=== PATIENT | male | born 1955 | race African-American/Black ===

== ENCOUNTER → 2017-01-20 | Outpatient (CLI) | payer OTHER ==
--- NOTE | 2017-01-20 20:45 | RADIOLOGY REPORT (SQ) ---
EXAM DESCRIPTION: CT PELVIS WITH COMPLETED DATE/TIME: 01/20/2017 8:29 pm REASON FOR STUDY: Unilat inguinal hernia,without obstruct/gangrene IV ORAL K40.90 COMPARISON: None. TECHNIQUE: CT scan of the pelvis performed with intravenous contrast. Images reviewed with soft tis nima and bone windows. Reconstructed coronal and sagittal MPR images reviewed. All images stored on PACS. Contrast administered was 85 mL Isovue 370. Renal function creatinine 0.9. All CT scanners at this facility use dose modulation, iterative reconstruction, and/or weight based d osing when appropriate to reduce radiation dose to as low as reasonably achievable (ALARA). [facility]: Dose Right [facility]: CareDose [facility]: Dose Right [facility]: Teradose 4D [facility]: [employer] RADIATION DOSE: 27.28 mGy. LIMITATIONS: None. FINDINGS: PELVIC BONES: No acute fracture. No worrisome bone lesions. VISUALIZED SPINE: No acute findings. HIP(S): No acute fracture or dislocation. No worrisome bone lesions. PELVIC SOFT TISSUES: No evidence of inguinal hernia or fluid collection. EXTRAPELVIC SOFT TISSUES: No significant findings. OTHER: Polycystic kidneys. IMPRESSION: NO ACUTE FINDINGS.No evidence of inguinal hernia or fluid collection.Polycystic kidneys. TECHNICAL DOCUMENTATION: JOB ID: [id number] Quality ID # [id number]: Final reports with documentation of one or more dose reduction techniques (e.g., Au tomated exposure control, adjustment of the mA and/or kV according to patient size, use of iterative reconstruction technique) 2010 [employer]- All Rights Reserved
== END ==
LOC: RAD 16:51
PROVIDERS: ATTEND Internal Medicine Geriatric Medicine
DX: K40.90 Unilateral inguinal hernia, without obstruction or gangrene, not specified as recurrent (principal)
CPT/HCPCS: 72193; 82565

== ENCOUNTER 2017-01-31 21:59 | Emergency (ER) | payer OTHER ==
--- NOTE | 2017-01-31 23:32 | RADIOLOGY REPORT (SQ) ---
EXAM DESCRIPTION: KNEE RIGHT 4 VIEWS COMPLETED DATE/TIME: 01/31/2017 11:22 pm REASON FOR STUDY: PAIN COMPARISON: None. NUMBER OF VIEWS: Four views. TECHNIQUE: AP, lateral, and both oblique radiographic images acquired of the right knee. LIMITATIONS: None. FINDINGS: MINERALIZATION: Normal. BONES: No acute fracture or dislocation. No worrisome bone lesions. No significant osteophytes. JOINT: No effusion. No chondrocalcinosis. OTHER: No other significant finding. IMPRESSION: No significant findings TECHNICAL DOCUMENTATION: JOB ID: [id number] [employer]- All Rights Reserved
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
[2017-02-01 01:42] VITALS: BP 153/69
== END 2017-02-01 01:35 | disposition home or self-care (01) ==
LOC: ER 21:59
DX: S01.01XA Laceration without foreign body of scalp, initial encounter (principal); S86.911A Strain of unspecified muscle(s) and tendon(s) at lower leg level, right leg, initial encounter; S16.1XXA Strain of muscle, fascia and tendon at neck level, initial encounter; V49.40XA Driver injured in collision with unspecified motor vehicles in traffic accident, initial encounter; R51 Headache; M54.2 Cervicalgia; M25.561 Pain in right knee; I10 Essential (primary) hypertension; Z79.82 Long term (current) use of aspirin; Z79.899 Other long term (current) drug therapy
CPT/HCPCS: 99284; 73564; 70450; 72125; L0120

== ENCOUNTER 2017-02-08 16:19 | Emergency (ER) | payer OTHER ==
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
[2017-02-08 20:02] VITALS: BP 174/78
== END 2017-02-08 19:54 | disposition home or self-care (01) ==
LOC: ER 16:19
DX: M54.5 Low back pain (principal); M25.561 Pain in right knee; V89.2XXA Person injured in unspecified motor-vehicle accident, traffic, initial encounter; E78.00 Pure hypercholesterolemia, unspecified; I10 Essential (primary) hypertension
CPT/HCPCS: 72070; 72110; 99283

== ENCOUNTER 2017-02-11 05:24 | Day surgery (SDC) | payer OTHER ==
--- NOTE | 2017-02-04 10:27 | RADIOLOGY REPORT (SQ) ---
EXAM DESCRIPTION: CHEST PA/LATERAL COMPLETED DATE/TIME: 02/04/2017 9:57 am REASON FOR STUDY: PRE-OP COMPARISON: March 2016 EXAM PARAMETERS: NUMBER OF VIEWS: two views TECHNIQUE: Digital Frontal and Lateral radiographic views of the chest acquired. RADIATION DOSE: NA LIMITATIONS: none FINDINGS: LUNGS AND PLEURA: No opacities, masses or pneumothorax. No pleural effusion. MEDIASTINUM AND HILAR STRUCTURES: No masses or contour abnormalities. HEART AND VASCULAR STRUCTURES: Heart normal size. No evidence for failure. BONES: No acute findings. HARDWARE: None in the chest. OTHER: No other significant finding. IMPRESSION: NO SIGNIFICANT RADIOGRAPHIC FINDING IN THE CHEST. TECHNICAL DOCUMENTATION: JOB ID: [id number] [employer]- All Rights Reserved
--- NOTE | 2017-02-04 11:01 | EKG REPORT ---
SEVERITY:- ABNORMAL ECG - SINUS ARRHYTHMIA, RATE 48-74 LEFT VENTRICULAR HYPERTROPHY : Confirmed by: Sonya Curiel MD 04-Feb-2017 11:00:36
[2017-02-04 11:07] LABS: ABSOLUTE EOSINOPHILS # (AUTO) 0.2 10^3/uL (0.0-0.6); ABSOLUTE LYMPHOCYTES (AUTO) 1.2 10^3/uL (0.5-4.7); ABSOLUTE MONOCYTES (AUTO) 0.6 10^3/uL (0.1-1.4); ABSOLUTE NEUT (AUTO) 2.6 10^3/uL (1.7-8.2); HEMATOCRIT 40.8 % (37.9-51.0); HEMOGLOBIN 13.2 g/dL (13.5-17.0); HGB HCT DIFFERENCE -1.2; LYMPHOCYTES % (AUTO) 25.8 % (13-45); MEAN CORPUSCULAR HGB CONC 32.3 g/dL (32.0-36.0); MEAN CORPUSCULAR VOLUME 84 fl (80-97); MONOCYTES % (AUTO) 12.5 % (3-13); RED BLOOD COUNT 4.89 10^6/uL (4.35-5.55); RED CELL DISTRIBUTION WIDTH 14.2 % (11.5-14.0); SEGMENTED NEUTROPHILS % (AUTO) 55.7 % (42-78); WHITE BLOOD COUNT 4.6 10^3/uL (4.0-10.5)
[2017-02-04 11:12] LABS: APPEARANCE,URINE CLEAR; BILIRUBIN,URINE NEGATIVE (NEGATIVE); GLUCOSE, URINE NEGATIVE (NEGATIVE); KETONES,URINE NEGATIVE (NEGATIVE); LEUKOCYTE ESTERASE,URINE NEGATIVE (NEGATIVE); NITRITE,URINE NEGATIVE (NEGATIVE); PROTEIN,URINE 30 mg/dL (NEGATIVE); URINE SPECIFIC GRAVITY 1.025; UROBILINOGEN,URINE NEGATIVE mg/dL (<2.0)
[2017-02-04 11:13] LABS: RBC,URINE 0-1 /HPF
[2017-02-04 11:26] LABS: ANION GAP 10 (5-19); BLOOD UREA NITROGEN 28 mg/dL (7-20); CALCIUM 9.2 mg/dL (8.4-10.2); CARBON DIOXIDE 29 mmol/L (22-30); CHLORIDE 105 mmol/L (98-107); CREATININE RESULT 0.88 mg/dL (0.52-1.25); GLUCOSE 87 mg/dL (75-110); POTASSIUM 4.1 mmol/L (3.6-5.0); SODIUM 143.8 mmol/L (137-145)
[~2017-02-11 05:24] MED LIST: CEFAZOLIN 2 GM/D5W RTU 2 GM/50 ML RTUPB IV PRN; LACTATED RINGERS 1000 ML IV PRN; LIDOCAINE 0.5% INJ-PF (5 MG/ML) 50 ML SDV SUBCUT PRN
[2017-02-11] MEDS ORDERED: POLYMYXIN B SULFATE INJ 500000 UNIT VIAL ONE (06:02)
[2017-02-11] MEDS ORDERED: BACITRACIN INJ 50,000 UNIT VIAL ONE (06:02)
[2017-02-11] MEDS ORDERED: PROPOFOL INJ 200 MG/20 ML VIAL IV ONE (07:08)
[2017-02-11] MEDS ORDERED: BUPIVACAINE HCL 0.25% /EPINEPHRINE INJ/PF 30 ML SDV ONE (07:08)
[2017-02-11] MEDS ORDERED: MIDAZOLAM 2 MG/2 ML INJ ONE (07:08)
[2017-02-11] MEDS ORDERED: HYDROMORPHONE HCL INJ/PF 2 MG/ML AMPULE ONE (07:08)
[2017-02-11] MEDS ORDERED: DIPHENHYDRAMINE HCL 50 MG/ML VIAL IV PRN (07:45)
[2017-02-11] MEDS ORDERED: PROMETHAZINE HCL INJ 25 MG/1 ML VIAL IV PRN ×2 (07:45)
[2017-02-11] MEDS ORDERED: MEPERIDINE HCL/PF INJ 25 MG/1 ML DISP.SYRIN IV PRN (07:45)
[2017-02-11] MEDS ORDERED: FENTANYL CITRATE INJ/PF 100 MCG/2 ML AMPUL IV PRN ×3 (07:45)
[2017-02-11] MEDS ORDERED: MORPHINE SULFATE 10 MG/ML INJ IV PRN (07:45)
[2017-02-11] MEDS ORDERED: OXYCODONE-ACETAMINOPHEN 5-325 MG TABLET PO PRN ×3 (07:45→08:25)
--- NOTE | 2017-02-11 08:13 | PDOC DISCHARGE SUMMARY ---
Discharge Summary (SDC) - Discharge Final Diagnosis: Excision left shoulder lipoma Date of Surgery: 02/11/17 Discharge Date: 02/11/17 Condition: Good Treatment or Instructions: Range of motion as tolerated. No heavy lifting or carrying. Keep dressing dry clean and intact for 4 days. Okay to remove the dressing in 4 days and then shower. Follow-up in 10-14 days. Patient to return sooner if he develops fevers chills , redness or drainage. Prescriptions: Tramadol HCl [Ultram 50 mg Tablet] 50 mg PO ASDIR PRN #20 tablet PRN Reason: Referrals: KALIE VALVERDE MD [ACTIVE STAFF] - Discharge Diet: As Tolerated Respiratory Treatments at Home: Deep Breathing/Coughing Discharge Activity: No Lifting/Push/Pulling, Slowly Increase Activity Home Care Assistance: None Needed Report the Following to Your Physician Immediately: Shortness of Breath, Vomiting, Increase in Pain, Yellow Skin, Fever over 101 Degrees, Unusual Bleeding, Redness, Swelling, Warmth, Increased Soreness, Drainage-Yellow, Drainage-Castro, Drainage-Green, Drainage-Foul Smelling
--- NOTE | 2017-02-11 08:18 | Operative Report ---
Operative Report DATE OF SURGERY: 02/11/17 PREOPERATIVE DIAGNOSIS: Lipoma left shoulder. POSTOPERATIVE DIAGNOSIS: Same OPERATION: Excision of lipoma left shoulder. SURGEON: KALIE ARIAS ANESTHESIA: GA TISSUE REMOVED OR ALTERED: Lipoma measuring 6 x 4 x 2.5mm COMPLICATIONS: None ESTIMATED BLOOD LOSS: 10mL INTRAOPERATIVE FINDINGS: As above PROCEDURE: Patient was given 2 g of Ancef and then taken to the operating room. Patient was placed in supine position withPatient was given general anesthetic. Patient was placed about a 30 head above bed and a bump under his shoulder blade. The prepped and draped the left superior shoulder in normal sterile surgical manner. A thyroid drape was used to place over the lipoma located superior to the left shoulder. Timeout was done identifying the left shoulder as the correct site. Quarter percent Marcaine with epinephrine was injected in the anticipated surgical site. 15 blade was used to do a longitudinal incision right over the mass. Electrocautery was used to coagulate any active bleeders. Self-retaining was applied and then dissection was done with Metzenbaum scissors and pickups. Was able to separate the dermal fascial layer and exposed the mass further. Small rogelio in the fascia to tissue over the mass was done and then Metzenbaum scissors was used to cut from anterior to posterior exposing the fatty tumor. Metzenbaum scissors was used then to dissect around the tumor and inferiorly and with chest finger dissection was able to remove the lipoma off of the superior shoulder. Patient had a small little remnant in the most posterior aspect of her incision which was clamped with a Allis clamp and then resected with Metzenbaum scissors. Did not palpate any further fatty tumor and did not visualize any other pathology. The AC joint was not violated. The shoulder joint was not violated. I have proceeded to then approximate the subcutaneous tissue with 0 Vicryl and applied 2-0 Vicryl to the dermal layer. I closed skin with 3-0 Monocryl stitch in a subcuticular fashion. Benzoin and Steri-Strips were applied. Incision wound and dressing was covered with 4 x 4 dressing and tape. Drapes were removed and patient LMA was removed and patient was placed flat position and then transferred to [facility] where he was taken to PACU in a stable condition.
[2017-02-11 10:04] VITALS: BP 140/77
== END 2017-02-11 10:20 | disposition home or self-care (01) ==
LOC: OROUT 05:24
PROVIDERS: ATTEND Orthopaedic Surgery
PROC: 0JBF0ZZ Excision of Left Upper Arm Subcutaneous Tissue and Fascia, Open Approach (ICD-10-PCS; principal; 2017-02-11 07:30)
DX: D17.22 Benign lipomatous neoplasm of skin and subcutaneous tissue of left arm (principal); I10 Essential (primary) hypertension; Z79.899 Other long term (current) drug therapy; Z79.82 Long term (current) use of aspirin
CPT/HCPCS: 93005; 36415; 85025; 80048; 81001; 88304 ×2; 71020; 93010; 11406; J2250; J3490; J1170; J2704; J0690; 400

== ENCOUNTER 2017-03-20 11:32 | Observation (INO) | payer OTHER ==
[2017-03-20] MEDS ORDERED: NORMAL SALINE 1000 ML 1,000 ML IV PRN (12:34)
--- NOTE | 2017-03-20 12:37 | ER Document Report ---
ED Medical Screen (RME) - General Chief Complaint: High Blood Pressure Stated Complaint: BLOOD PRESSURE PROBLEM Time Seen by Provider: 03/20/17 12:34 Mode of Arrival: Ambulatory Information source: Patient Notes: This is a 61-year-old man presents to the emergency room for concerns for elevated blood pressure. The patient does report some lightheadedness and dizziness. Denies any headache or weakness TRAVEL OUTSIDE OF THE [place] IN LAST 30 DAYS: No - Related Data Allergies/Adverse Reactions: No Known Allergies Allergy (Verified 02/08/17 16:28) Past Medical History - Social History Chew tobacco use (# tins/day): No Frequency of alcohol use: None Drug Abuse: None - Past Medical History Cardiac Medical History: Reports: Hx Hypercholesterolemia, Hx Hypertension Denies: Hx Coronary Artery Disease, Hx Heart Attack Pulmonary Medical History: Denies: Hx Asthma, Hx Bronchitis, Hx COPD, Hx Pneumonia, Hx Tuberculosis Neurological Medical History: Denies: Hx Cerebrovascular Accident, Hx Seizures Renal/ Medical History: Denies: Hx Peritoneal Dialysis Musculoskeltal Medical History: Reports Hx Arthritis - Immunizations Hx Diphtheria, Pertussis, Tetanus Vaccination: Yes Physical Exam - Vital signs Vitals: Temp Pulse Resp BP Pulse Ox 97.3 F 45 L 17 177/69 H 100 03/20/17 11:49 03/20/17 11:49 03/20/17 11:49 03/20/17 11:49 03/20/17 11:49 Course - Vital Signs Vital signs: Temp Pulse Resp BP Pulse Ox 97.3 F 45 L 14 183/79 H 98 03/20/17 11:49 03/20/17 11:49 03/20/17 13:43 03/20/17 13:31 03/20/17 13:31 - Laboratory Result Diagrams: 03/20/17 13:40 03/20/17 13:40 Laboratory results interpreted by me: 03/20/17 03/20/17 13:40 13:40 WBC 3.8 L RDW 14.2 H Seg Neutrophils % 37.4 L Eosinophils % 6.1 H Absolute Neutrophils 1.4 L Creatine Kinase 393 H Doctor's Discharge - Discharge Clinical Impression: uncontrolled blood pressure, chest pain Condition: Stable Disposition: ADMITTED OBSERVATION
--- NOTE | 2017-03-20 13:23 | RADIOLOGY REPORT (SQ) ---
EXAM DESCRIPTION: CHEST SINGLE VIEW COMPLETED DATE/TIME: 03/20/2017 1:07 pm REASON FOR STUDY: cp COMPARISON: 02/04/2017 EXAM PARAMETERS: NUMBER OF VIEWS: One view. TECHNIQUE: Single frontal radiographic view of the chest acquired. RADIATION DOSE: NA LIMITATIONS: None. FINDINGS: LUNGS AND PLEURA: No opacities, masses or pneumothorax. No pleural effusion. MEDIASTINUM AND HILAR STRUCTURES: No masses. Contour normal. HEART AND VASCULAR STRUCTURES: Heart stable in size. Normal vasculature. BONES: No acute findings. HARDWARE: None in the chest. OTHER: No other significant finding. IMPRESSION: NO ACUTE RADIOGRAPHIC FINDING IN THE CHEST. NO SIGNIFICANT CHANGE FROM PRIOR STUDY. TECHNICAL DOCUMENTATION: JOB ID: [id number]
--- NOTE | 2017-03-20 13:40 | EKG REPORT ---
SEVERITY:- OTHERWISE NORMAL ECG - SINUS BRADYCARDIA : Confirmed by: Sonya Curiel MD 20-Mar-2017 13:39:30
[2017-03-20 14:05] LABS: ABSOLUTE EOSINOPHILS # (AUTO) 0.2 10^3/uL (0.0-0.6); ABSOLUTE LYMPHOCYTES (AUTO) 1.7 10^3/uL (0.5-4.7); ABSOLUTE MONOCYTES (AUTO) 0.4 10^3/uL (0.1-1.4); ABSOLUTE NEUT (AUTO) 1.4 10^3/uL (1.7-8.2); EOSINOPHILS % (AUTO) 6.1 % (0-6); HEMATOCRIT 42.5 % (37.9-51.0); HEMOGLOBIN 13.9 g/dL (13.5-17.0); HGB HCT DIFFERENCE -0.8; MEAN CORPUSCULAR HEMOGLOBIN 27.4 pg (27.0-33.4); MEAN CORPUSCULAR HGB CONC 32.7 g/dL (32.0-36.0); MEAN CORPUSCULAR VOLUME 84 fl (80-97); MONOCYTES % (AUTO) 11.5 % (3-13); RED BLOOD COUNT 5.08 10^6/uL (4.35-5.55); RED CELL DISTRIBUTION WIDTH 14.2 % (11.5-14.0); SEGMENTED NEUTROPHILS % (AUTO) 37.4 % (42-78); WHITE BLOOD COUNT 3.8 10^3/uL (4.0-10.5)
[2017-03-20 14:10] LABS: ALANINE AMINOTRANSFERASE 34 U/L (21-72); ALBUMIN 4.4 g/dL (3.5-5.0); ALKALINE PHOSPHATASE 67 U/L (38-126); ANION GAP 12 (5-19); ASPARTATE AMINO TRANSFERASE 29 U/L (17-59); BILIRUBIN,DIRECT 0.3 mg/dL (0.0-0.4); BILIRUBIN,TOTAL 0.9 mg/dL (0.2-1.3); BLOOD UREA NITROGEN 17 mg/dL (7-20); CALCIUM 9.1 mg/dL (8.4-10.2); CARBON DIOXIDE 29 mmol/L (22-30); CHLORIDE 103 mmol/L (98-107); CREATINE KINASE 393 U/L (55-170); CREATININE RESULT 0.91 mg/dL (0.52-1.25); GLUCOSE 91 mg/dL (75-110); POTASSIUM 3.9 mmol/L (3.6-5.0); TOTAL PROTEIN 7.8 g/dL (6.3-8.2)
[2017-03-20 14:21] LABS: CREATINE KINASE MB 3.66 ng/mL (<4.55); TROPONIN I 0.014 ng/mL
--- NOTE | 2017-03-20 14:42 | ER Document Report ---
ED General - General Chief Complaint: High Blood Pressure Stated Complaint: BLOOD PRESSURE PROBLEM Time Seen by Provider: 03/20/17 12:34 Mode of Arrival: Ambulatory Information source: Patient Notes: 61-year-old man that presented to the emergency room with dizziness, weakness and "just not feeling right". The patient does state he had an episode of chest discomfort this morning at did not last that long. The patient states she has a history of high blood pressure which is been borderline and he also has a history of bradycardia. TRAVEL OUTSIDE OF THE [place] IN LAST 30 DAYS: No - HPI Onset: This morning Onset/Duration: Gradual Quality of pain: Dull Severity: Moderate Pain Level: 2 Associated symptoms: Chest pain, Nausea. denies: Fever, Shortness of breath Exacerbated by: Denies Relieved by: Denies Similar symptoms previously: No Recently seen / treated by doctor: No - Related Data Allergies/Adverse Reactions: No Known Allergies Allergy (Verified 02/08/17 16:28) Home Medications: Current Home Medications Aspirin [Ecotrin 81 mg EC Tablet] 81 mg PO DAILY 03/20/17 [History] Valsartan [Diovan 160 mg Tablet] 160 mg PO DAILY 03/20/17 [History] Past Medical History - General Information source: Patient - Social History Smoking Status: Never Smoker Chew tobacco use (# tins/day): No Frequency of alcohol use: None Drug Abuse: None Lives with: Family Family History: Reviewed & Not Pertinent Patient has suicidal ideation: No Patient has homicidal ideation: No - Past Medical History Cardiac Medical History: Reports: Hx Hypercholesterolemia, Hx Hypertension Denies: Hx Coronary Artery Disease, Hx Heart Attack Pulmonary Medical History: Denies: Hx Asthma, Hx Bronchitis, Hx COPD, Hx Pneumonia, Hx Tuberculosis Neurological Medical History: Denies: Hx Cerebrovascular Accident, Hx Seizures Renal/ Medical History: Denies: Hx Peritoneal Dialysis Musculoskeltal Medical History: Reports Hx Arthritis - Immunizations Hx Diphtheria, Pertussis, Tetanus Vaccination: Yes Review of Systems - Review of Systems Constitutional: No symptoms reported EENT: No symptoms reported Cardiovascular: See HPI Respiratory: No symptoms reported Gastrointestinal: No symptoms reported Genitourinary: No symptoms reported Male Genitourinary: No symptoms reported Musculoskeletal: No symptoms reported Skin: No symptoms reported Hematologic/Lymphatic: No symptoms reported Neurological/Psychological: No symptoms reported Physical Exam - Vital signs Vitals: Temp Pulse Resp BP Pulse Ox 97.3 F 45 L 17 177/69 H 100 03/20/17 11:49 03/20/17 11:49 03/20/17 11:49 03/20/17 11:49 03/20/17 11:49 Notes: Physical exam: GENERAL:-year-old man, alert and oriented 3, no acute distress HEAD: Atraumatic, normocephalic. EYES: Pupils equal round and reactive to light, extraocular movements intact, sclera anicteric, conjunctiva are normal. ENT: TMs normal, nares patent, oropharynx clear without exudates. Moist mucous membranes. NECK: Normal range of motion, supple without lymphadenopathy or JVD. LUNGS: Breath sounds clear to auscultation bilaterally and equal. No wheezes rales or rhonchi. HEART: Regular rate and rhythm without murmurs, rubs or gallops. ABDOMEN: Soft, normoactive bowel sounds. No tenderness to palpation. No guarding, no rebound. No masses appreciated. EXTREMITIES: Normal range of motion, no pitting or edema. No clubbing or cyanosis. NEUROLOGICAL: Cranial nerves II through XII grossly intact. Normal speech, normal gait. PSYCH: Normal mood, normal affect. SKIN: Warm, Dry, normal turgor, no rashes or lesions noted. Course - Vital Signs Vital signs: Temp Pulse Resp BP Pulse Ox 98.0 F 45 L 18 171/74 H 10 L 03/20/17 18:03 03/20/17 18:03 03/20/17 18:03 03/20/17 18:03 03/20/17 18:03 - Laboratory Result Diagrams: 03/20/17 13:40 03/20/17 13:40 Laboratory results interpreted by me: 03/20/17 03/20/17 13:40 13:40 WBC 3.8 L RDW 14.2 H Seg Neutrophils % 37.4 L Eosinophils % 6.1 H Absolute Neutrophils 1.4 L Creatine Kinase 393 H - Diagnostic Test Radiology reviewed: Image reviewed, Reports reviewed - CXR: no infiltrates - EKG Interpretation by Me Rate: Bradycardia Rhythm: NSR - ECG shows sinus bradycardia acute ST-T wave changes Discharge - Discharge Clinical Impression: uncontrolled blood pressure, chest pain Condition: Stable Disposition: ADMITTED OBSERVATION Admitting Provider: [facility] Unit Admitted: Telemetry
[2017-03-20] MEDS ORDERED: VALSARTAN 160 MG TABLET PO ONE (17:30)
[2017-03-20 17:37] LABS: MAGNESIUM 1.9 mg/dL (1.6-2.3)
[2017-03-20] MEDS ORDERED: ASPIRIN 81 MG TABLET, ENT COATED PO ONE (18:00)
[2017-03-20 20:24] LABS: CREATINE KINASE MB 3.05 ng/mL (<4.55); TROPONIN I 0.013 ng/mL
[2017-03-20 20:42] LABS: THYROID STIMULATING HORMONE 7.91 uIU/mL (0.47-4.68)
[2017-03-21 02:22] LABS: CREATINE KINASE MB 2.41 ng/mL (<4.55); TROPONIN I 0.015 ng/mL
[2017-03-21 07:51] LABS: ABSOLUTE EOSINOPHILS # (AUTO) 0.3 10^3/uL (0.0-0.6); ABSOLUTE LYMPHOCYTES (AUTO) 1.7 10^3/uL (0.5-4.7); ABSOLUTE MONOCYTES (AUTO) 0.4 10^3/uL (0.1-1.4); ABSOLUTE NEUT (AUTO) 1.7 10^3/uL (1.7-8.2); BASOPHILS % (AUTO) 0.7 % (0-2); EOSINOPHILS % (AUTO) 6.6 % (0-6); HEMATOCRIT 41.9 % (37.9-51.0); HEMOGLOBIN 13.7 g/dL (13.5-17.0); HGB HCT DIFFERENCE -0.8; MEAN CORPUSCULAR HEMOGLOBIN 27.6 pg (27.0-33.4); MEAN CORPUSCULAR HGB CONC 32.7 g/dL (32.0-36.0); MEAN CORPUSCULAR VOLUME 85 fl (80-97); MONOCYTES % (AUTO) 10.3 % (3-13); RED BLOOD COUNT 4.96 10^6/uL (4.35-5.55); RED CELL DISTRIBUTION WIDTH 13.9 % (11.5-14.0); SEGMENTED NEUTROPHILS % (AUTO) 41.4 % (42-78); WHITE BLOOD COUNT 4.1 10^3/uL (4.0-10.5)
[2017-03-21 08:01] LABS: ALANINE AMINOTRANSFERASE 27 U/L (21-72); ALBUMIN 3.7 g/dL (3.5-5.0); ALKALINE PHOSPHATASE 53 U/L (38-126); ANION GAP 10 (5-19); ASPARTATE AMINO TRANSFERASE 21 U/L (17-59); BILIRUBIN,DIRECT 0.2 mg/dL (0.0-0.4); BLOOD UREA NITROGEN 15 mg/dL (7-20); CARBON DIOXIDE 26 mmol/L (22-30); CHLORIDE 105 mmol/L (98-107); CREATINE KINASE 277 U/L (55-170); GLUCOSE 82 mg/dL (75-110); POTASSIUM 3.9 mmol/L (3.6-5.0); SODIUM 140.8 mmol/L (137-145); TOTAL PROTEIN 6.7 g/dL (6.3-8.2)
[2017-03-21 08:19] LABS: CREATINE KINASE MB 1.97 ng/mL (<4.55)
[2017-03-21 08:26] LABS: TROPONIN I < 0.012 ng/mL
[2017-03-21] MEDS: VALSARTAN 160 MG TABLET PO SCH (11:02)
[2017-03-21] MEDS: ASPIRIN 81 MG TABLET, ENT COATED PO SCH (11:12)
[2017-03-21] MEDS: ENOXAPARIN SODIUM INJ 40 MG/0.4 ML DISP.SYRIN SUBCUT SCH (11:12)
[2017-03-21] MEDS ORDERED: 1/2 NORMAL SALINE 1,000 ML IV PRN (18:52)
[2017-03-21] MEDS ORDERED: VALSARTAN 160 MG TABLET PO ONE (19:00)
--- NOTE | 2017-03-21 19:14 | PDOC H&P ---
History of Present Illness Admission Date/PCP: 03/20/17 17:17 GOIVANNA COLLINS Patient complains of: High blood pressure, dizziness, chest discomfort History of Present Illness: GIGI TAPIA is a 61 year old male known to my practice who presented to ED with complaints of chest discomfort, dizziness, and elevated blood pressure. He reported associated nausea but denied any associated headache, vomiting, or diaphoresis. Patient reported episodes of palpitation. Patient reported episode of chest discomfort on the morning of her presentation which he described as short lived and no definite chest pain. He claimed that he had a [facility]. He claimed compliance with his medication and dietary restrictions. His initial ED evaluation was remarkable for bradycardia. His co-morbidities include Hypertension, Hyperlipidemia, and osteoarthritis. He denied cigarette smoking or alcohol abuse. Past Medical History Cardiac Medical History: Reports: Hyperlipidema, Hypertension Denies: Congestive Heart Failure, Coronary Artery Disease, Myocardial Infarction Pulmonary Medical History: Denies: Asthma, Bronchitis, Chronic Obstructive Pulmonary Disease (COPD), Pneumonia, Tuberculosis Neurological Medical History: Denies: Seizures Renal/ Medical History: Denies: End Stage Renal Disease GI Medical History: Denies: Cirrhosis, Gastroesophageal Reflux Disease Musculoskeltal Medical History: Reports: Arthritis Psychiatric Medical History: Denies: Bipolar Disorder, Depression Hematology: Denies: Anemia, Bleeding Tendencies Social History Lives with: Family Smoking Status: Never Smoker Hx Recreational Drug Use: No Hx Prescription Drug Abuse: No - Advance Directive Resuscitation Status: Full Code Family History Family History: Reviewed & Not Pertinent Parental Family History Reviewed: Yes Children Family History Reviewed: Yes Sibling(s) Family History Reviewed.: Yes Medication/Allergy Home Medications: Aspirin [Ecotrin 81 mg EC Tablet] 81 mg PO DAILY 03/20/17 Valsartan [Diovan 160 mg Tablet] 160 mg PO DAILY 03/20/17 Allergies/Adverse Reactions: No Known Allergies Allergy (Verified 02/08/17 16:28) Review of Systems Constitutional: ABSENT: chills, fever(s), headache(s), weight gain, weight loss Eyes: ABSENT: visual disturbances Ears: ABSENT: hearing changes Nose, Mouth, and Throat: ABSENT: as per HPI, headache(s), mouth pain, sore throat, vertigo, other Cardiovascular: PRESENT: other - chest discomfort. ABSENT: as per HPI, chest pain, dyspnea on exertion, edema, orthropnea, palpitations Respiratory: ABSENT: cough, hemoptysis Gastrointestinal: PRESENT: nausea - slight. ABSENT: as per HPI, abdominal pain , bloating, coffee ground emesis, constipation, diarrhea, dysphagia, heartburn, hematemesis, hematochezia, melena, vomiting, other Genitourinary: ABSENT: dysuria, hematuria Musculoskeletal: ABSENT: joint swelling Integumentary: ABSENT: rash, wounds Neurological: ABSENT: abnormal gait, abnormal speech, confusion, dizziness, focal weakness, syncope Psychiatric: ABSENT: anxiety, depression, homidical ideation, suicidal ideation Endocrine: ABSENT: cold intolerance, heat intolerance, menstrual abnormalities, polydipsia, polyuria Hematologic/Lymphatic: ABSENT: easy bleeding, easy bruising, lymphadenopathy Physical Exam Vital Signs: Temp Pulse Resp BP Pulse Ox 98.1 F 59 L 18 177/81 H 100 03/21/17 15:49 03/21/17 15:49 03/21/17 15:49 03/21/17 15:49 03/21/17 15:49 Intake & Output 03/20/17 03/21/17 03/22/17 06:59 06:59 06:59 Intake Total 1216 Balance 1216 Weight 83.2 kg General appearance: PRESENT: no acute distress, well-developed, well-nourished Head exam: PRESENT: atraumatic, normocephalic Eye exam: PRESENT: conjunctiva pink, EOMI, PERRLA. ABSENT: scleral icterus Ear exam: PRESENT: normal external ear exam Mouth exam: PRESENT: moist, tongue midline Teeth exam: ABSENT: dental caries, dental tenderness, edentulous, poor dentation , other Throat exam: ABSENT: post pharyngeal erythema, tonsillar erythema, tonsillar exudate, tonsillogmegaly, other Neck exam: PRESENT: full ROM. ABSENT: carotid bruit, JVD, lymphadenopathy, thyromegaly Respiratory exam: PRESENT: clear to auscultation homero Cardiovascular exam: PRESENT: RRR. ABSENT: diastolic murmur, rubs, systolic murmur Pulses: PRESENT: normal dorsalis pedis pul, +2 pedal pulses bilateral Vascular exam: PRESENT: normal capillary refill GI/Abdominal exam: PRESENT: hernia - left inguinal hernia, normal bowel sounds, soft. ABSENT: distended, guarding, mass, organolmegaly, rebound, tenderness Rectal exam: PRESENT: deferred Extremities exam: ABSENT: pedal edema Musculoskeletal exam: PRESENT: deformity - related to joint involvement with arthritis Neurological exam: PRESENT: alert, awake, oriented to person, oriented to place , oriented to time, oriented to situation, CN II-XII grossly intact. ABSENT: motor sensory deficit Psychiatric exam: PRESENT: appropriate affect, normal mood. ABSENT: homicidal ideation, suicidal ideation Skin exam: PRESENT: dry, intact, warm. ABSENT: cyanosis, rash Results Laboratory Results: 03/21/17 07:34 03/21/17 07:34 03/20/17 03/20/17 03/21/17 19:20 19:20 07:34 WBC RBC Hgb Hct MCV MCH MCHC RDW Plt Count Seg Neutrophils % Lymphocytes % Monocytes % Eosinophils % Basophils % Absolute Neutrophils Absolute Lymphocytes Absolute Monocytes Absolute Eosinophils Absolute Basophils Sodium 140.8 Potassium 3.9 Chloride 105 Carbon Dioxide 26 Anion Gap 10 BUN 15 Creatinine 1.00 Est GFR ( Amer) > 60 Est GFR (Non-Af Amer) > 60 Glucose 82 Calcium 9.0 Total Bilirubin 1.0 AST 21 ALT 27 Alkaline Phosphatase 53 Ammonia 22.0 Total Protein 6.7 Albumin 3.7 TSH 7.91 H Free T4 0.86 03/21/17 07:34 WBC 4.1 RBC 4.96 Hgb 13.7 Hct 41.9 MCV 85 MCH 27.6 MCHC 32.7 RDW 13.9 Plt Count 175 Seg Neutrophils % 41.4 L Lymphocytes % 41.0 Monocytes % 10.3 Eosinophils % 6.6 H Basophils % 0.7 Absolute Neutrophils 1.7 Absolute Lymphocytes 1.7 Absolute Monocytes 0.4 Absolute Eosinophils 0.3 Absolute Basophils 0.0 Sodium Potassium Chloride Carbon Dioxide Anion Gap BUN Creatinine Est GFR ( Amer) Est GFR (Non-Af Amer) Glucose Calcium Total Bilirubin AST ALT Alkaline Phosphatase Ammonia Total Protein Albumin TSH Free T4 03/20/17 03/20/17 03/21/17 19:20 19:20 01:41 Creatine Kinase 329 H 318 H CK-MB (CK-2) 3.05 Troponin I 0.013 03/21/17 03/21/17 03/21/17 01:41 07:34 07:34 Creatine Kinase 277 H CK-MB (CK-2) 2.41 1.97 Troponin I 0.015 < 0.012 Impressions: Chest X-Ray 03/20/17 12:35 IMPRESSION: NO ACUTE RADIOGRAPHIC FINDING IN THE CHEST. NO SIGNIFICANT CHANGE FROM PRIOR STUDY. Assessment & Plan - Diagnosis (1) Chest pain, atypical Is this a current diagnosis for this admission?: YesPlan: See admitting physician orders. (2) Uncontrolled hypertension Is this a current diagnosis for this admission?: YesPlan: See admitting physician orders. (3) Hyperlipidemia Qualifiers: Hyperlipidemia type: pure hypercholesterolemia Qualified Code(s): E78.00 - Pure hypercholesterolemia, unspecified; E78.0 - Pure hypercholesterolemia Is this a current diagnosis for this admission?: YesPlan: See admitting physician orders. (4) Osteoarthritis involving multiple joints on both sides of body Is this a current diagnosis for this admission?: YesPlan: See admitting physician orders. 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
[2017-03-22 05:37] LABS: ABSOLUTE EOSINOPHILS # (AUTO) 0.3 10^3/uL (0.0-0.6); ABSOLUTE LYMPHOCYTES (AUTO) 1.4 10^3/uL (0.5-4.7); ABSOLUTE MONOCYTES (AUTO) 0.4 10^3/uL (0.1-1.4); ABSOLUTE NEUT (AUTO) 1.6 10^3/uL (1.7-8.2); BASOPHILS % (AUTO) 1.2 % (0-2); HEMATOCRIT 40.4 % (37.9-51.0); HEMOGLOBIN 13.4 g/dL (13.5-17.0); HGB HCT DIFFERENCE -0.2; MEAN CORPUSCULAR HEMOGLOBIN 27.4 pg (27.0-33.4); MEAN CORPUSCULAR HGB CONC 33.2 g/dL (32.0-36.0); MEAN CORPUSCULAR VOLUME 83 fl (80-97); MONOCYTES % (AUTO) 10.3 % (3-13); RED BLOOD COUNT 4.89 10^6/uL (4.35-5.55); SEGMENTED NEUTROPHILS % (AUTO) 43.5 % (42-78); WHITE BLOOD COUNT 3.7 10^3/uL (4.0-10.5)
[2017-03-22 05:50] LABS: ALANINE AMINOTRANSFERASE 31 U/L (21-72); ALBUMIN 3.4 g/dL (3.5-5.0); ALKALINE PHOSPHATASE 55 U/L (38-126); ANION GAP 8 (5-19); ASPARTATE AMINO TRANSFERASE 20 U/L (17-59); BILIRUBIN,DIRECT 0.2 mg/dL (0.0-0.4); BILIRUBIN,TOTAL 0.8 mg/dL (0.2-1.3); BLOOD UREA NITROGEN 16 mg/dL (7-20); CALCIUM 8.8 mg/dL (8.4-10.2); CARBON DIOXIDE 25 mmol/L (22-30); CHLORIDE 104 mmol/L (98-107); CHOLESTEROL 178.53 mg/dL (0-200); CREATINE KINASE 217 U/L (55-170); CREATININE RESULT 0.95 mg/dL (0.52-1.25); Direct HDL 39 mg/dL (>40); GLUCOSE 84 mg/dL (75-110); POTASSIUM 3.8 mmol/L (3.6-5.0); SODIUM 136.9 mmol/L (137-145); TOTAL PROTEIN 6.3 g/dL (6.3-8.2); TRIGLYCERIDES 60 mg/dL (<150)
[2017-03-22 06:01] LABS: DIRECT LDL 120 mg/dL (<100)
[2017-03-22 06:03] LABS: CREATINE KINASE MB 1.46 ng/mL (<4.55)
[2017-03-22 06:05] LABS: TROPONIN I < 0.012 ng/mL
[2017-03-22] MEDS: VALSARTAN 160 MG TABLET PO SCH (11:39)
[2017-03-22] MEDS: ENOXAPARIN SODIUM INJ 40 MG/0.4 ML DISP.SYRIN SUBCUT SCH (11:42)
[2017-03-22] MEDS: ASPIRIN 81 MG TABLET, ENT COATED PO SCH (11:42)
--- NOTE | 2017-03-22 18:51 | PDOC DISCHARGE SUMMARY ---
General - Admit/Disc Date/PCP Admission Date/Primary Care Provider: 03/20/17 17:17 GIOVANNA SHADA Discharge Date: 03/22/17 - Discharge Diagnosis (1) Chest pain, atypical Is this a current diagnosis for this admission?: Yes (2) Uncontrolled hypertension Is this a current diagnosis for this admission?: Yes (3) Hyperlipidemia Is this a current diagnosis for this admission?: Yes (4) Osteoarthritis involving multiple joints on both sides of body Is this a current diagnosis for this admission?: Yes - Additional Information Resuscitation Status: Full Code Discharge Diet: Cardiac Discharge Activity: Activity As Tolerated Home Medications: Aspirin [Ecotrin 81 mg EC Tablet] 81 mg PO DAILY 03/20/17 Valsartan [Diovan] 320 mg PO DAILY #30 tablet 03/22/17 History of Present Illness History of Present Illness: GIGI TAPIA is a 61 year old male known to my practice who presented to ED with complaints of chest discomfort, dizziness, and elevated blood pressure. He reported associated nausea but denied any associated headache, vomiting, or diaphoresis. Patient reported episodes of palpitation. Patient reported episode of chest discomfort on the morning of her presentation which he described as short lived and no definite chest pain. He claimed that he had a [facility] test [facility]. He claimed compliance with his medication and dietary restrictions. His initial ED evaluation was remarkable for bradycardia. His co-morbidities include Hypertension, Hyperlipidemia, and osteoarthritis. He denied cigarette smoking or alcohol abuse. Hospital Course Hospital Course: Patient was without chest pain during hospital stay. His elevated total CK was suggestive of musculoskeletal origin as cause of his chest pain. Patient total CK level did improved with IV hydration. His blood pressure was fairly controlled with addition of evening dose Diovan. He will be discharge home on Diovan 320 mg po daily. He will remain on Ecotrin 81 mg p.o daily. I will follow up on his hyperlipidemia management on outpatient. I emphasized dietary control and walking exercise for hyperlipidemia management at this time. Patient 's pharmacologic stress test was completed at this facility on 04/21/2016 without any definite scintigraphic evidence of myocardial infarction. His LVEF was approximately 51%. Physical Exam Vital Signs: Temp Pulse Resp BP Pulse Ox 98.5 F 62 18 133/73 H 100 03/22/17 11:45 03/22/17 14:00 03/22/17 11:45 03/22/17 11:45 03/22/17 11:45 Intake & Output 03/21/17 03/22/17 03/23/17 06:59 06:59 06:59 Intake Total 2153 1177 Output Total 0739 Balance 2153 -1198 Weight 83.2 kg 79.7 kg General appearance: PRESENT: no acute distress, well-developed, well-nourished Head exam: PRESENT: atraumatic, normocephalic Eye exam: PRESENT: conjunctiva pink, EOMI, PERRLA. ABSENT: scleral icterus Neck exam: PRESENT: full ROM. ABSENT: carotid bruit, JVD, lymphadenopathy, thyromegaly Respiratory exam: PRESENT: clear to auscultation homero Cardiovascular exam: PRESENT: RRR. ABSENT: diastolic murmur, rubs, systolic murmur GI/Abdominal exam: PRESENT: normal bowel sounds, soft. ABSENT: distended, guarding, mass, organolmegaly, rebound, tenderness Extremities exam: ABSENT: pedal edema Musculoskeletal exam: PRESENT: normal inspection Neurological exam: PRESENT: alert, awake, oriented to person, oriented to place , oriented to time, oriented to situation, CN II-XII grossly intact. ABSENT: motor sensory deficit Psychiatric exam: PRESENT: appropriate affect, normal mood. ABSENT: homicidal ideation, suicidal ideation Results Laboratory Results: 03/22/17 05:10 03/22/17 05:10 03/22/17 03/22/17 05:10 05:10 WBC 3.7 L RBC 4.89 Hgb 13.4 L Hct 40.4 MCV 83 MCH 27.4 MCHC 33.2 RDW 14.0 Plt Count 162 Seg Neutrophils % 43.5 Lymphocytes % 38.0 Monocytes % 10.3 Eosinophils % 7.0 H Basophils % 1.2 Absolute Neutrophils 1.6 L Absolute Lymphocytes 1.4 Absolute Monocytes 0.4 Absolute Eosinophils 0.3 Absolute Basophils 0.0 Sodium 136.9 L Potassium 3.8 Chloride 104 Carbon Dioxide 25 Anion Gap 8 BUN 16 Creatinine 0.95 Est GFR ( Amer) > 60 Est GFR (Non-Af Amer) > 60 Glucose 84 Calcium 8.8 Total Bilirubin 0.8 AST 20 ALT 31 Alkaline Phosphatase 55 Total Protein 6.3 Albumin 3.4 L Triglycerides 60 Cholesterol 178.53 LDL Cholesterol Direct 120 H VLDL Cholesterol 12.0 HDL Cholesterol 39 L 03/20/17 17:30 Clean Catch Midstream Urine Culture - Final NO GROWTH 2 DAYS 03/20/17 03/20/17 03/21/17 19:20 19:20 01:41 Creatine Kinase 329 H 318 H CK-MB (CK-2) 3.05 Troponin I 0.013 NT-Pro-B Natriuret Pep 03/21/17 03/21/17 03/21/17 01:41 07:34 07:34 Creatine Kinase 277 H CK-MB (CK-2) 2.41 1.97 Troponin I 0.015 < 0.012 NT-Pro-B Natriuret Pep 03/22/17 03/22/17 05:10 05:10 Creatine Kinase 217 H CK-MB (CK-2) 1.46 Troponin I < 0.012 NT-Pro-B Natriuret Pep 146 Impressions: Chest X-Ray 03/20/17 12:35 IMPRESSION: NO ACUTE RADIOGRAPHIC FINDING IN THE CHEST. NO SIGNIFICANT CHANGE FROM PRIOR STUDY. Qualifiers PATEINT BEING DISCHARGED WITH ANY OF THE FOLLOWING DIAGNOSIS?: No Plan Discharge Plan: D/C home today. Follow up in the office as instructed upon discharge. Time Spent: Greater than 30 Minutes
[2017-03-22 19:36] VITALS: BP 154/81
== END 2017-03-22 20:00 | disposition home or self-care (01) ==
LOC: ER 11:32 → UNDOADMOB 15:04 → EH 15:04 → 3S 17:55
PROVIDERS: ADMIT Internal Medicine Geriatric Medicine; ATTEND Internal Medicine Geriatric Medicine
DX: R07.89 Other chest pain (principal); I10 Essential (primary) hypertension; E78.00 Pure hypercholesterolemia, unspecified; M19.90 Unspecified osteoarthritis, unspecified site; R11.0 Nausea; R00.1 Bradycardia, unspecified; Z79.82 Long term (current) use of aspirin; Z79.899 Other long term (current) drug therapy
CPT/HCPCS: 93005; 99285; 96360; 36415 ×3; 87040; 87086; 84439; 82553 ×3; 82140; 82150; 82550 ×3; 83735; 84100; 84443; 85025 ×3; 85730; 80076 ×2; 80048 ×2; 80053; 84484 ×3; 83036; 80061; 83880; 71010; 93010; J7030; G0378

== ENCOUNTER 2017-03-23 06:53 | Day surgery (SDC) | payer OTHER ==
[2017-03-17 09:21] LABS: HEMATOCRIT 40.7 % (37.9-51.0); HEMOGLOBIN 13.3 g/dL (13.5-17.0); HGB HCT DIFFERENCE -0.8; MEAN CORPUSCULAR HEMOGLOBIN 27.5 pg (27.0-33.4); MEAN CORPUSCULAR HGB CONC 32.7 g/dL (32.0-36.0); MEAN CORPUSCULAR VOLUME 84 fl (80-97); RED BLOOD COUNT 4.83 10^6/uL (4.35-5.55); WHITE BLOOD COUNT 3.6 10^3/uL (4.0-10.5)
[~2017-03-23 06:53] MED LIST changes: +ACETAMINOPHEN 325 MG TABLET PO PRN; +CEFAZOLIN 1 GM/D5W RTU 1 GM/50 ML RTUPB IV PRN; -CEFAZOLIN 2 GM/D5W RTU 2 GM/50 ML RTUPB IV PRN
[2017-03-23] MEDS ORDERED: BUPIVACAINE HCL 0.25 % INJ/PF (2.5 MG/1 ML) 30 ML VIAL ONE (06:54)
[2017-03-23] MEDS ORDERED: BUPIVACAINE INJ/PF LIPOSOME/PF 266 MG/20 ML SDV ONE (06:55)
[2017-03-23] MEDS ORDERED: ACETAMINOPHEN 100 ML IV ONE (09:36)
[2017-03-23] MEDS ORDERED: FENTANYL CITRATE INJ/PF 100 MCG/2 ML AMPUL ONE (09:36)
[2017-03-23] MEDS ORDERED: MIDAZOLAM 2 MG/2 ML INJ ONE (09:36)
[2017-03-23] MEDS ORDERED: FENTANYL CITRATE INJ/PF 250 MCG/5 ML AMPULE ONE (09:36)
[2017-03-23] MEDS ORDERED: IBUPROFEN INJ 800 MG/8 ML VIAL IV ONE (09:36)
[2017-03-23] MEDS ORDERED: PROPOFOL INJ 200 MG/20 ML VIAL IV ONE (09:36)
[2017-03-23] MEDS ORDERED: LABETALOL HCL INJ 20 MG/4 ML DISP.SYRIN IV ONE (09:57)
[2017-03-23] MEDS ORDERED: HYDRALAZINE HCL INJ/PF 20 MG/1 ML SDV ONE (09:58)
[2017-03-23] MEDS ORDERED: ONDANSETRON HCL INJ/PF 4 MG/2 ML SDV IV PRN ×2 (10:34→11:28)
[2017-03-23] MEDS ORDERED: MORPHINE SULFATE 10 MG/ML INJ IV PRN (10:34)
[2017-03-23] MEDS ORDERED: FENTANYL CITRATE INJ/PF 100 MCG/2 ML AMPUL IV PRN ×3 (10:34)
[2017-03-23] MEDS ORDERED: DIPHENHYDRAMINE HCL 50 MG/ML VIAL IV PRN (10:34)
[2017-03-23] MEDS ORDERED: MEPERIDINE HCL/PF INJ 25 MG/1 ML DISP.SYRIN IV PRN (10:34)
--- NOTE | 2017-03-23 11:26 | PDOC DISCHARGE SUMMARY ---
Discharge Summary (SDC) - Discharge Final Diagnosis: Pjters inguinal hernia Date of Surgery: 03/23/17 Discharge Date: 03/23/17 Condition: Stable Treatment or Instructions: [facility] [address], [place] [address] Discharge Instructions: Inguinal Hernia 1. General Information: a. DO NOT DRIVE a car or operate dangerous machinery for 3-4 days or while taking narcotic pain pills. b. DO NOT consume alcohol, tranquilizers, sleeping medications or any non- prescribed medications for 24 hours unless approved by your doctor or as long as taking narcotic prescription medications. c. DO NOT make important decisions or sign any important papers for the first 24 hours after surgery. d. When discharged home the same day of surgery have a responsible person with you for the first night. 2. Activity Restrictions: _6 weeks. a. NO heavy lifting, straining abdominal muscles, bending over a lot, yard work, house work, or sports for [address] for 3-4 days or while taking _Toradol___ . c. It is fine to go for walks, up and down steps, ride in a car. d. Elevate your head when sleeping/resting. 3. Treatment: a. You may shower 24 hours after surgery, no baths or swimming for 2 weeks. Leave skin glue intact b. Drainage of fluid or blood is not unusual from an incision. If occurs, you can clean with peroxide and cotton ball daily and cover with dry gauze until the wound seals. c. If a lot of bleeding occurs, you can hold pressure with a gauze or cloth over the site for 10 minutes and it will usually stop. If bleeding continues you will need to call for possible evaluation in office or emergency room. 4. Medications: a. _Toradol__ may be taken for pain as needed, one or two tablets every 4-6 hours. Stop the narcotic when able since you cannot take it and drive, and they cause constipation. You may switch to plain Tylenol. Many adults find good pain relief with Advil 600-800 mg three times a day with meals. Do not take aleve or advil while taking Toradol. This can cause indigestion, ulcers, and kidney problems with long-term use. b. You should resume all normal medications unless a change is specified by your doctors. 5. Diet: Begin with clear liquids and may progress to your normal diet if not nauseated. No high fat, high protein foods the day of surgery. 6. The following may occur after surgery: b. Soreness and bruising at incision sites will resolve with time. c. Scrotal swelling (labia in women) and bruising is often seen after hernia surgery. d. Sore throat e. Fatigue may last days to weeks. f. Difficulty urinating may occur and may need to come into emergency room for urinary catheter placement. 7. Notify Physician If: a. Worsening or pain not improved with pain medication b. Persistent nausea and vomiting c. Fever above 101 d. Persistent bleeding or swelling at operative site e. Unable to urinate and uncomfortable bladder 6-8 hours after surgery 8..Follow Up Care: a. Schedule a follow up appointment with your doctor for 2 weeks. In the event of any postoperative problems or questions or you may call the office during business hours or the On-Call physician evenings and weekends at [facility]. [facility] I understand the instructions for my postoperative care as described above and a copy has been given to me. Patient/Significant Other Witness Date. Prescriptions: Ketorolac Tromethamine [Toradol 10 mg Tablet] 10 mg PO Q6HP PRN #20 tablet PRN Reason: Discharge Diet: As Tolerated Discharge Activity: No Lifting Over 10 Pounds, No Lifting/Push/Pulling, No tub bath, Walk Frequently Report the Following to Your Physician Immediately: Vomiting, Increase in Pain, Fever over 101 Degrees, Drainage-Foul Smelling
--- NOTE | 2017-03-23 11:27 | Operative Report ---
Operative Report DATE OF SURGERY: 03/23/17 PREOPERATIVE DIAGNOSIS: Left inguinal hernia, incarcerated POSTOPERATIVE DIAGNOSIS: Same with Berger's hernia involving the sigmoid colon OPERATION: 1. Left inguinal exploration to left inguinal herniorrhaphy with [employer] Ethicon Prolene hernia system SURGEON: JOSÉ MIGUEL MITTAL 1ST VIDEOGAME TESTER: TYREL LOPEZ ANESTHESIA: GA TISSUE REMOVED OR ALTERED: Scant cord fat COMPLICATIONS: None ESTIMATED BLOOD LOSS: Scant INTRAOPERATIVE FINDINGS: See below PROCEDURE: The patient was seen in the preop holding area where the left inguinal region was marked. Of note patient was admitted [facility] for hypertension the previous weekend. Records were reviewed with anesthesia, and the decision was made to proceed with general anesthesia The patient was taken to the operating room where general anesthesia was induced. The abdomen was exposed, left inguinal area and genitalia prepped and draped sterile fashion. Surgical plan and surgical timeout were conducted. The skin was anesthetized with quarter percent Marcaine. A standard left inguinal herniorrhaphy incision was made with a knife, Francis's fascia divided with electrocautery, and the external oblique aponeurosis divided with knife and scissors along the direction of its fibers. The contents of the inguinal canal were now analyzed. The findings were significant for distortion of the cremasteric fibers, and a hernia sac which was heavily fibrotic lead bonded to surrounding tissue. The ilioinguinal nerve was identified and spared. The hernia sac was dissected free of cord structures carefully, and the hernia sac opened up along its least tethered edge which was the cranial side. The peritoneum was opened and the contents of the hernia sac included the sigmoid colon loop. In fact the posterior inferior and caudal side of the hernia sac in fact made up the peritoneal reflection containing the sigmoid colon. Of note inferiorly there was dense fibrotic tissue along the peritoneum. The majority of this dense fibrotic tissue ridge was freed up under direct visualization with scissors. We now were able to carefully inspect the loop of sigmoid colon, and the free peritoneal space. There was no evidence of injury or violation to the viscera. At this point we felt that we could comfortably closed the previously open anterior side of the hernia sac with 2-0 Vicryl suture once this was accomplished, we are able to nicely reduce the peritoneal closure and sac down into the abdominal cavity thereby now creating a nice generous extraperitoneal space to deploy our mesh. Again with the cord structures looped and out of the way, we bluntly dissected the retroperitoneal pocket with gauze and finger dissection. We now deployed a unexpired large [employer] Eth[employer] Prolene hernia system into the after mentioned pocket with the inner component splayed out in a circumferential fashion. The external component was trimmed to the appropriate configuration, with an upside down U cut into the mesh to accommodate the cord structures. The mesh was secured to the conjoined tendon and Poupart's ligament with 0 PDS suture. The new internal ring was not too tight. We were satisfied with the repair. A conduit at the lateral lead to the pubic tubercle was created to allow passage of the nerve previously spared. External oblique aponeurosis closed long direction of its fibers as well as Francis's fascia. Skin approximately a 3-0 Vicryl, then glued with Dermabond glue. 20 cc of Exparel injected into the subcutaneous tissues. Patient, procedure well, extubated and taken to recovery in stable condition. The physician professional nursing assistant, Ms. Lopez, provided assistance during this case by: Assisting and port insertion, retracting tissue, instillation of local anesthesia and closure of skin incisions.
[2017-03-23] MEDS ORDERED: OXYCODONE-ACETAMINOPHEN 5-325 MG TABLET PO PRN (11:28)
[2017-03-23] MEDS: FENTANYL CITRATE INJ/PF 100 MCG/2 ML AMPUL ONE ×2 (11:45→11:52)
[2017-03-23] MEDS ORDERED: ONDANSETRON HCL INJ/PF 4 MG/2 ML SDV ONE (11:47)
[2017-03-23] MEDS ORDERED: LIDOCAINE 2% INJ-PF (20 MG/ML) 10 ML AMPUL ONE (11:47)
[2017-03-23] MEDS ORDERED: DEXAMETHASONE SOD PHOSPHATE INJ 4 MG/1 ML VIAL ONE (11:47)
[2017-03-23] MEDS ORDERED: GLYCOPYRROLATE INJ 0.4 MG/2 ML VIAL ONE (11:47)
[2017-03-23] MEDS ORDERED: SUCCINYLCHOLINE CHLORIDE INJ 200 MG/10 ML VIAL ONE (11:47)
[2017-03-23 13:56] VITALS: BP 176/89
== END 2017-03-23 14:00 | disposition home or self-care (01) ==
LOC: OROUT 06:53
PROVIDERS: ATTEND Surgery
PROC: 0WUF0JZ Supplement Abdominal Wall with Synthetic Substitute, Open Approach (ICD-10-PCS; 2017-03-23)
PROC: 0YU60JZ Supplement Left Inguinal Region with Synthetic Substitute, Open Approach (ICD-10-PCS; principal; 2017-03-23 09:00)
DX: K46.0 Unspecified abdominal hernia with obstruction, without gangrene (principal); K40.30 Unilateral inguinal hernia, with obstruction, without gangrene, not specified as recurrent; I10 Essential (primary) hypertension; Z79.82 Long term (current) use of aspirin
CPT/HCPCS: 36415; 85027; 49507; 49561; 49568; C1781; J2250; J0690; J1100; J3010 ×2; J0330; J2405; J2704; J3490; J0131; C9290; 830; J0360; J1741

== ENCOUNTER 2017-07-14 17:14 | Emergency (ER) | payer OTHER ==
[2017-07-14] MEDS ORDERED: ASPIRIN 81 MG TABLET, CHEWABLE PO ONE (18:09)
--- NOTE | 2017-07-14 18:11 | ER Document Report ---
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 He is saying the pain is worse with movement and is improved at rest. His last stress test was 5 months ago and it was normal. He denies numbness, tingling, back pain, nausea, vomiting, fevers, shortness of breath or headache. TRAVEL OUTSIDE OF THE [place] IN LAST 30 DAYS: No - Related Data Allergies/Adverse Reactions: No Known Allergies Allergy (Verified 07/14/17 17:30) Past Medical History - General Information source: Patient - Social History Smoking Status: Never Smoker Chew tobacco use (# tins/day): No Frequency of alcohol use: Rare Drug Abuse: None Family History: Reviewed & Not Pertinent Patient has suicidal ideation: No Patient has homicidal ideation: No - Past Medical History Cardiac Medical History: Reports: Hx Hypercholesterolemia, Hx Hypertension Denies: Hx Congestive Heart Failure, Hx Coronary Artery Disease, Hx Heart Attack Pulmonary Medical History: Denies: Hx Asthma, Hx Bronchitis, Hx COPD, Hx Pneumonia, Hx Tuberculosis Neurological Medical History: Denies: Hx Cerebrovascular Accident, Hx Seizures Renal/ Medical History: Denies: Hx Benign Prostatic Hyperplasia, Hx End Stage Renal Disease, Hx Kidney Stones, Hx Peritoneal Dialysis GI Medical History: Denies: Hx Cirrhosis, Hx Gastroesophageal Reflux Disease, Hx Ulcer Musculoskeltal Medical History: Reports Hx Arthritis, Denies Hx Multiple Sclerosis Psychiatric Medical History: Denies: Hx Bipolar Disorder, Hx Depression, Hx Schizophrenia - Immunizations Hx Diphtheria, Pertussis, Tetanus Vaccination: Yes Review of Systems - Review of Systems Notes: REVIEW OF SYSTEMS: CONSTITUTIONAL: -fevers, -chills EENT: -eye pain, -difficulty swallowing, -nasal congestion CARDIOVASCULAR: +chest pain, -syncope. RESPIRATORY: -cough, -SOB GASTROINTESTINAL: -abdominal pain, -nausea, -vomiting, -diarrhea GENITOURINARY: -dysuria, -hematuria MUSCULOSKELETAL: -back pain, -neck pain SKIN: -rash or skin lesions. HEMATOLOGIC: -easy bruising or bleeding. LYMPHATIC: -swollen, enlarged glands. NEUROLOGICAL: -altered mental status or loss of consciousness, -headache, - neurologic symptoms PSYCHIATRIC: -anxiety, -depression. ALL OTHER SYSTEMS REVIEWED AND NEGATIVE. Physical Exam - Vital signs Vitals: Temp Pulse Resp BP Pulse Ox 98.3 F 51 L 16 152/73 H 99 07/14/17 17:17 07/14/17 17:17 07/14/17 17:17 07/14/17 17:17 07/14/17 17:17 - Notes Notes: PHYSICAL EXAMINATION: GENERAL: Well-appearing, well-nourished and in no acute distress. HEAD: Atraumatic, normocephalic. EYES: Pupils equal round and reactive to light, extraocular movements intact, sclera anicteric, conjunctiva are normal. ENT: nares patent, oropharynx clear without exudates. Moist mucous membranes. NECK: Normal range of motion, supple without lymphadenopathy LUNGS: Breath sounds clear to auscultation bilaterally and equal. No wheezes rales or rhonchi. HEART: Regular rate and rhythm without murmurs. Tenderness over right lateral chest wall. ABDOMEN: Soft, nontender, normoactive bowel sounds. No guarding, no rebound. No masses appreciated. EXTREMITIES: Normal range of motion, no pitting or edema. No cyanosis. NEUROLOGICAL: Cranial nerves grossly intact. Normal speech, normal gait. Normal sensory and motor exams. PSYCH: Normal mood, normal affect. SKIN: Warm, Dry, normal turgor, no rashes or lesions noted. Course - Re-evaluation Re-evalutation: Patient appears very well. His chest x-ray, EKG and labs are unremarkable. He has a known sinus bradycardia from prior visits. His CPK is 798, but kidney function is normal. Instructed him to drink plenty of water to help prevent further worsening of his mild rhabdomyolysis. His HEART score is 3 and his symptoms are atypical for aortic dissection or PE at this time. Symptoms ongoing for the past week. He will follow-up with his primary care physician, Dr. Collins, tomorrow for further evaluation and treatment. - Vital Signs Vital signs: Temp Pulse Resp BP Pulse Ox 98.3 F 51 L 16 152/73 H 99 07/14/17 17:17 07/14/17 17:17 07/14/17 17:17 07/14/17 17:17 07/14/17 17:17 - Laboratory Result Diagrams: 07/14/17 18:20 07/14/17 18:20 Laboratory results interpreted by me: 07/14/17 07/14/17 18:20 18:20 RDW 14.2 H Creatine Kinase 706 H - Diagnostic Test Radiology reviewed: Image reviewed, Reports reviewed - EKG Interpretation by Me EKG shows normal: Sinus rhythm, [place], Intervals, QRS Complexes, ST-T Waves Rate: Normal, Bradycardia When compared to previous EKG there are: No significant change Discharge - Discharge Clinical Impression: Chest pain, Chest pain, atypical Rhabdomyolysis Qualifiers: Rhabdomyolysis type: traumatic Encounter type: initial encounter Qualified Code (s): T79.6XXA - Traumatic ischemia of muscle, initial encounter Condition: Stable Disposition: HOME, SELF-CARE Additional Instructions: Drink plenty of water to help prevent muscle breakdown. Follow-up with Dr. Collins this week for recheck of your symptoms. You may take ibuprofen and ice packs for any pain. CHEST PAIN OF UNCLEAR CAUSE: The exact cause of your chest pain isn't clear. Fortunately, there is no evidence of a dangerous medical condition. Further testing may be required to find the source of the pain. Most often, we find that this pain is coming from the chest wall -- the muscles or rib joints in the chest. But chest pain can come from the lung and lung lining, the esophagus, the heart valves or heart lining, and even the stomach or gallbladder. Rest. Eat lightly until the pain is gone. We may prescribe medicine for pain and inflammation. You should call the physician immediately if the pain radiates to the shoulder, jaw or arms; if you start to run a fever or develop a cough; or if you develop shortness of breath, or other new or alarming symptoms. NORMAL EXAM AND WORKUP: At this time, your examination and workup show no significant abnormality. No significant abnormal physical findings were noted. All laboratory, EKG, and imaging (x-ray, CT scans, ultrasound) studies that were ordered show no significant abnormality. Although your examination and all studies that were ordered showed no significant abnormal finding, there are no examinations and no studies that are 100% accurate. There is always the possibility that some abnormality could exist and not be detected with physical examination or within the limits and capabilities of laboratory and other studies. You should return or follow up as you were instructed on your visit today for further evaluation if your symptoms do not resolve. CHEST WALL PAIN: Your chest pain may be coming from the chest wall. This is often caused by straining the muscles or joints in the chest during physical activity, direct trauma, coughing, or vigorous vomiting. Persons with arthritis are especially prone to this type of pain, due to inflammation of the cartilage joints near the breast bone. Occasionally, no cause can be found. Rest from strenuous physical activity. This kind of chest pain is usually made worse by movement of the chest. Depending on the symptoms, we may prescribe medicine for pain, muscle relaxation, and antiinflammatory effects. If the pain is new, and seems to be due to muscle strain, cold packs can help. Otherwise, apply gentle warmth to the painful area for 15 minutes every hour or two. You should call contact the doctor immediately if things change. Further evaluation is needed if you develop a fever or cough, if the nature of the pain changes, or if you become short of breath. FOLLOW-UP CARE: If you have been referred to a physician for follow-up care, call the physician s office for an appointment as you were instructed or within the next two days. If you experience worsening or a significant change in your symptoms, notify the physician immediately or return to the Emergency Department at any time for re-evaluation. Forms: Elevated Blood Pressure Referrals: GIOVANNA COLLINS MD [ACTIVE STAFF] - Follow up as needed
--- NOTE | 2017-07-14 18:37 | RADIOLOGY REPORT (SQ) ---
EXAM DESCRIPTION: CHEST PA/LAT COMPLETED DATE/TIME: 07/14/2017 6:29 pm REASON FOR STUDY: chest pain COMPARISON: 04/25/2016 EXAM PARAMETERS: NUMBER OF VIEWS: two views TECHNIQUE: Digital Frontal and Lateral radiographic views of the chest acquired. RADIATION DOSE: NA LIMITATIONS: none FINDINGS: LUNGS AND PLEURA: No opacities, masses or pneumothorax. No pleural effusion. MEDIASTINUM AND HILAR STRUCTURES: No masses or contour abnormalities. HEART AND VASCULAR STRUCTURES: Heart normal size. No evidence for failure. BONES: No acute findings. HARDWARE: None in the chest. OTHER: No other significant finding. IMPRESSION: NO SIGNIFICANT RADIOGRAPHIC FINDING IN THE CHEST. TECHNICAL DOCUMENTATION: JOB ID: [id number] [employer]- All Rights Reserved
[2017-07-14 18:38] LABS: ABSOLUTE BASOPHILS # (AUTO) 0.1 10^3/uL (0.0-0.2); ABSOLUTE EOSINOPHILS # (AUTO) 0.2 10^3/uL (0.0-0.6); ABSOLUTE LYMPHOCYTES (AUTO) 1.8 10^3/uL (0.5-4.7); ABSOLUTE MONOCYTES (AUTO) 0.5 10^3/uL (0.1-1.4); ABSOLUTE NEUT (AUTO) 2.2 10^3/uL (1.7-8.2); BASOPHILS % (AUTO) 1.4 % (0-2); EOSINOPHILS % (AUTO) 3.4 % (0-6); HEMATOCRIT 43.9 % (37.9-51.0); HEMOGLOBIN 14.7 g/dL (13.5-17.0); HGB HCT DIFFERENCE 0.2; LYMPHOCYTES % (AUTO) 37.1 % (13-45); MEAN CORPUSCULAR HEMOGLOBIN 27.5 pg (27.0-33.4); MEAN CORPUSCULAR HGB CONC 33.4 g/dL (32.0-36.0); MEAN CORPUSCULAR VOLUME 82 fl (80-97); MONOCYTES % (AUTO) 11.3 % (3-13); RED BLOOD COUNT 5.34 10^6/uL (4.35-5.55); RED CELL DISTRIBUTION WIDTH 14.2 % (11.5-14.0); SEGMENTED NEUTROPHILS % (AUTO) 46.8 % (42-78); WHITE BLOOD COUNT 4.8 10^3/uL (4.0-10.5)
[2017-07-14 19:11] LABS: ALANINE AMINOTRANSFERASE 49 U/L (21-72); ALBUMIN 4.4 g/dL (3.5-5.0); ALKALINE PHOSPHATASE 73 U/L (38-126); ANION GAP 13 (5-19); ASPARTATE AMINO TRANSFERASE 35 U/L (17-59); BILIRUBIN,DIRECT 0.2 mg/dL (0.0-0.4); BILIRUBIN,TOTAL 0.9 mg/dL (0.2-1.3); BLOOD UREA NITROGEN 19 mg/dL (7-20); CALCIUM 9.6 mg/dL (8.4-10.2); CARBON DIOXIDE 28 mmol/L (22-30); CHLORIDE 100 mmol/L (98-107); CREATINE KINASE 706 U/L (55-170); GLUCOSE 82 mg/dL (75-110); POTASSIUM 4.4 mmol/L (3.6-5.0); SODIUM 140.8 mmol/L (137-145); TOTAL PROTEIN 7.1 g/dL (6.3-8.2)
[2017-07-14 19:40] VITALS: BP 129/68
--- NOTE | 2017-07-15 09:27 | EKG REPORT ---
SEVERITY:- ABNORMAL ECG - SINUS BRADYCARDIA LEFT VENTRICULAR HYPERTROPHY : Confirmed by: Ernesto Cottrell 15-Jul-2017 09:26:29
== END 2017-07-14 19:42 | disposition home or self-care (01) ==
LOC: ER 17:14
DX: T79.6XXA Traumatic ischemia of muscle, initial encounter (principal); X58.XXXA Exposure to other specified factors, initial encounter; R07.89 Other chest pain; I10 Essential (primary) hypertension; R00.1 Bradycardia, unspecified
CPT/HCPCS: 36415; 71020; 80053; 82550; 84484; 85025; 93005; 93010; 99285